=== PATIENT | female | born 1940 | race Caucasian/White ===

== ENCOUNTER 2018-07-16 20:06 | Inpatient (IN) | payer OTHER ==
[~2018-07-16] VITALS: Ht 157.5 cm; Wt 61.7 kg
[~2018-07-16 20:06] MED LIST: APAP/HYDROCODON1 T13 PO; BUPROPION HCL150 M1 PO; CALCIUM; CIPRO500 MG PO; COL100 PO; DONEPEZIL HYDRO10 M2 PO; ECO81 PO; LAC PO; LEVOTHYROXIN0.075 M2 PO; LOVASTATIN20 MG PO; METFORMIN ER500 M1 PO; MOBIC7.5 MG PO; PRI20 PO; Q TUSSIN; VESICARE5 M1 PO; VITAMIN D
[2018-07-16 20:10] VITALS: Ht 157.5 cm; Wt 61.7 kg
[2018-07-16 21:53] LABS: BASOPHIL % 0.4 % (0-2); PLATELET COUNT 269 x10^3mcL (130-400); RED CELL DISTRIBUTION WIDTH 14.4 % (11.5-14.5)
[2018-07-16 22:02] LABS: CALCIUM 8.8 mg/dL (8.5-10.1); CHLORIDE SERUM 100 mmol/L (98-107); CREATININE SERUM 0.9 mg/dL (0.6-1.0); GLUCOSE SERUM 138 mg/dL (74-106); SODIUM SERUM 132 mmol/L (136-145)
[2018-07-16 23:27] LABS: FREE T4 1.05 ng/dL (0.76-1.46); FREE THYROXINE INDEX 2.5 ug/dL (1.4-4.5); T4(THYROXINE) 7.7 ug/dL (4.7-13.3)
[2018-07-17 00:04] LABS: CHOLESTEROL/HDL RATIO 3.6; PHOSPHOROUS 3.5 mg/dL (2.5-4.9)
[2018-07-17 00:41] LABS: MAGNESIUM 2.3 mg/dL (1.8-2.4)
[2018-07-17 01:12] LABS: T3 TOTAL 0.62 ng/mL
[2018-07-17 05:42] VITALS: BP 106/60
[2018-07-17 08:34] VITALS: BP 106/60
== END 2018-07-17 09:50 | disposition home or self-care (01) | DRG 116 ==
LOC: ED 20:06 → MU 20:55 → DU 20:55
PROVIDERS: Emergency Medicine; Internal Medicine; Ophthalmology
PROC: 089D3ZZ Drainage of Left Iris, Percutaneous Approach (ICD-10-PCS; principal; 2018-07-16 21:30)
DX: H40.212 Acute angle-closure glaucoma, left eye (principal); E87.1 Hypo-osmolality and hyponatremia; D72.829 Elevated white blood cell count, unspecified; E78.5 Hyperlipidemia, unspecified; E03.9 Hypothyroidism, unspecified; F03.90 Unspecified dementia, unspecified severity, without behavioral disturbance, psychotic disturbance, mood disturbance, and anxiety; Z86.73 Personal history of transient ischemic attack (TIA), and cerebral infarction without residual deficits
CPT/HCPCS: 84439; C1758; J1120; J2001; J2150; J2270; J2704; J3490; J7030; J7070; J7120; Q0162